=== PATIENT | female | born 1935 | race Caucasian/White ===

== ENCOUNTER 2023-10-25 14:24 | Emergency (ER) | payer OTHER, MEDICARE ==
[2023-10-25] MEDS ORDERED: SODIUM CHL 0.9% 1000 ML BAG IV ONE (14:25)
[2023-10-25] MEDS ORDERED: EPINEPHrine 1 MG/10 ML SYR IV ONE (14:25)
--- OUTSIDE RECORDS SUMMARY | 2023-10-25 14:27 | XMS REPORT | Continuity of Care Document ---
Author Name Unknown Address [address] [place] [address] [facility] thconnect Address [address] [place] [address] Care Team Providers Care Clothing Room Supervisor Name Role Phone MARCUS WILLS Attending Clinician Unavailable MAKEDA_EARLE_Liliana_Ellen Attending Clinician UnavailMARCUS Rodgers M.D. Attending Clinician UnavailPamela Baez Attending Clinician Unavailable Pcp-Lab Attending Clinician Unavailable Mina Hernandez DO Attending Clinician Doctor Unassigned, [place] Attending Clinician U navailable MAKEDA_EARLE_Starr_J Admitting Clinician Unavailab nolasco Payers Payer Name Policy Type Policy Number Effective Date Expirati on Date Source MEDICARE PART A AND B [id number] 1999 00:00:00 Problems Condition Name Condition Details Condition Category Status Onset Date Resolution Date Last Treatment Date Treating Clinician Comments Source Macular degenerati on Macular degenerati on Disease Active 10-19 00:00: 00 [facility] Aortic disorder Aortic disorder Disease Active 10-19 00:00: 00 Overview: Saw Dr. Bill in [place] early August. Diagnosed by echo. May have enlargeme nt and AI based upon her recollect ion. Didn't need f/u for a year. 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 02-19 00:00: 00 [facility] Asymptomat ic PVCs Asymptomat ic PVCs Disease Active 02-19 00:00: 00 [facility] Parotid swelling Parotid swelling Disease Active 2012-10 00:00: 00 [facility] Anemia Anemia Disease Active 06-18 00:00: 00 Overview: ICD10 Diagnosis Term Quality Improvement Consultant Utility [facility] Lumbago Lumbago Disease Active 11-09 00:00: 00 [facility] Hearing loss Hearing loss Disease Active 06-22 00:00: 00 [facility] 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 05-21 00:00: 00 [facility] Encounter for long-term (current) use of steroids Encounter for long-term (current) use of steroids Disease Active 05-21 00:00: 00 [facility] Personal history of other diseases of digestive system Personal history of other diseases of digestive system Disease Active 05-21 00:00: 00 [facility] Polymyalgi a rheumatica Polymyalgi a rheumatica Disease Active 05-21 00:00: 00 [facility] Elevated sedimentat ion rate Elevated sedimentat ion rate Disease Active 05-11 00:00: 00 [facility] Myalgia and myositis Myalgia and myositis Disease Active 05-11 00:00: 00 Overview: ICD10 Diagnosis Term Quality Improvement Consultant Utility [facility] Osteoporos is Osteoporos is Disease Active 05-11 00:00: 00 Overview: ICD10 Diagnosis Term Quality Improvement Consultant Utility [facility] History of anxiety disorder History of anxiety disorder Problem [facility]olve d [facility] History of arthritis History of arthritis Problem Resolve d [facility] History of hypertensi on History of hypertensi on Problem Resolve d [facility] History of fracture History of fracture Problem Resolve d [facility] History of hepatitis History of hepatitis Problem Resolve d [facility] History of high cholestero l History of high cholestero l Problem Resolve d [facility] History of pneumonia History of pneumonia Problem Resolve d [facility] History of psychiatri c treatment History of psychiatri c treatment Problem Resolve d [facility] Incomplete bladder emptying Incomplete bladder emptying Problem Active [facility] Recurrent UTI Recurrent UTI Problem Active [facility] 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 [facility] 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 Problem Active [facility] Urethral caruncle Urethral caruncle Problem Active [facility] Asymptomat ic bacteriuri a Asymptomat ic bacteriuri a Problem Active [facility] Vaginal atrophy Vaginal atrophy Problem Active [facility] Urinary incontinen ce in female Urinary incontinen ce in female Problem Active [facility] Allergies, Adverse Reactions, Alerts Allergy Name Allergy Type Status Severity Reaction(s) Onset Date Inactive Date Treating Clinician Comments Source Epinephr ine Propensi ty to adverse reaction s Active Unknown - See comments 01-18 00:00: 00 [facility] EPINEPHr ine Base AERS Allergy to drug (finding ) Active [facility] Family History Family Member Diagnosis Comments Start Date Stop Date Sourc e Sister Family history of diabetes mellitus [facility] Sister FHx: colon cancer [facility] Brother Family history of diabetes mellitus [facility] Unknown Family Member Family history of hypertension Multiple Family Members [facility] Grandfather FHx: colon cancer [facility] Social History Social Habit Start Date Stop Date Quantity Comments Source Alcohol intake [facility] Sex Assigned At [facility] Smoking Status Start Date Stop Date Source Never smoker [facility] Medications Ordered Medication Name Filled Medication Name Start Date Stop Date Current Medication? Ordering Clinician Indication Dosage Frequency Signature (SIG) Comments Components Source Estradiol 0.1 MG/GM Vaginal Cream Estradiol 0.1 MG/GM Vaginal Cream 12-30 00:00: 00 Yes MARCUS WILLS M.D. APPLY 1/2 GRAM TWICE WEEKLY [facility] ALPRAZolam (XANAX) 0.25 mg tablet 06-10 15:12: 39 Yes .25mg Take 0.25 mg by mouth 3 (three) times daily. Indication s: only for eye procedures [facility] ALPRAZolam (XANAX) 0.25 mg tablet 06-10 15:12: 39 Yes .25mg Take 0.25 mg by mouth 3 (three) times daily. Indication s: only for eye procedures [facility] ALPRAZolam (XANAX) 0.25 mg tablet 06-10 15:12: 39 Yes .25mg Take 0.25 mg by mouth 3 (three) times daily. Indication s: only for eye procedures [facility] ALPRAZolam (XANAX) 0.25 mg tablet 12-02 19:52: 11 Yes .25mg Take 0.25 mg by mouth 3 (three) times daily. Indication s: only for eye procedures [facility] CARTIA XT 180 mg 24 hr capsule 03-23 00:00: 00 Yes [facility] CARTIA XT 180 mg 24 hr capsule 03-23 00:00: 00 Yes [facility] CARTIA XT 180 mg 24 hr capsule 03-23 00:00: 00 Yes [facility] CARTIA XT 180 mg 24 hr capsule 03-23 00:00: 00 Yes [facility] predniSONE (ORASONE) 1 mg tablet 02-01 00:00: 00 Yes 3mg Take 3 tablets by mouth daily. [facility] predniSONE (ORASONE) 1 mg tablet 02-01 00:00: 00 Yes 3mg Take 3 tablets by mouth daily. [facility] predniSONE (ORASONE) 1 mg tablet 02-01 00:00: 00 Yes 3mg Take 3 tablets by mouth daily. [facility] predniSONE (ORASONE) 1 mg tablet 02-01 00:00: 00 Yes 3mg Take 3 tablets by mouth daily. [facility] ALPRAZolam 0.25 MG Oral Tablet ALPRAZolam 0.25 MG Oral Tablet Yes [facility] Cartia XT 120 MG/24HR CPCR Cartia XT 120 MG/24HR CPCR Yes [facility] Xarelto 2.5 MG Oral Tablet Xarelto 2.5 MG Oral Tablet Yes [facility] Vital Signs Vital Name Observation Time Observation Value Comments S kamryn Systolic blood pressure 2019-06-10 15:01:00 154 mm[Hg] [facility] Diastolic blood pressure 2019-06-10 15:01:00 84 mm[Hg] [facility] Heart rate 2019-06-10 15:01:00 82 /min [facility] Body temperature 2019-06-10 14:59:00 36.61 Ayse [facility] Respiratory rate 2019-06-10 14:59:00 16 /min [facility] Body height 2019-06-10 14:59:00 157.5 cm [facility] Body weight 2019-06-10 14:59:00 53.661 kg [facility] BMI 2019-06-10 14:59:00 21.64 kg/m2 [facility] Oxygen saturation in Arterial blood by Pulse oximetry 2019-06-10 14:59:00 95 /min In room air [facility] Systolic blood pressure 2019-06-10 15:01:00 154 mm[Hg] [facility] Diastolic blood pressure 2019-06-10 15:01:00 84 mm[Hg] [facility] Heart rate 2019-06-10 15:01:00 82 /min [facility] Body temperature 2019-06-10 14:59:00 36.61 Ayse [facility] Respiratory rate 2019-06-10 14:59:00 16 /min [facility] Body height 2019-06-10 14:59:00 157.5 cm [facility] Body weight 2019-06-10 14:59:00 53.661 kg [facility] BMI 2019-06-10 14:59:00 21.64 kg/m2 [facility] Oxygen saturation in Arterial blood by Pulse oximetry 2019-06-10 14:59:00 95 /min In room air [facility] Body temperature 2020-12-20 10:35:00 97.6 [degF] [facility] Systolic blood pressure 2020-12-20 10:35:00 132 mm[Hg] Location: LUE; Position: Sitting [facility] Diastolic blood pressure 2020-12-20 10:35:00 80 mm[Hg] Location: LUE; Position: Sitting [facility] Body height 2020-12-20 10:35:00 62 [in_us] [facility] Weight 2020-12-20 10:35:00 112 [lb_av] [facility] Body mass index (BMI) [Ratio] 2020-12-20 10:35:00 20.49 kg/m2 [facility] Systolic blood pressure 2020-06-15 11:14:00 120 mm[Hg] Location: LUE; Position: Sitting [facility] Diastolic blood pressure 2020-06-15 11:14:00 80 mm[Hg] Location: LUE; Position: Sitting [facility] Body height 2020-06-15 11:14:00 62 [in_us] [facility] Weight 2020-06-15 11:14:00 112 [lb_av] [facility] Body mass index (BMI) [Ratio] 2020-06-15 11:14:00 20.49 kg/m2 [facility] Body temperature 2020-06-15 11:14:00 97.9 [degF] [facility] Systolic blood pressure 2020-03-17 10:54:00 158 mm[Hg] Location: LUE; Position: Sitting [facility] Diastolic blood pressure 2020-03-17 10:54:00 80 mm[Hg] Location: LUE; Position: Sitting [facility] Body height 2020-03-17 10:54:00 62 [in_us] [facility] Weight 2020-03-17 10:54:00 112 [lb_av] [facility] Body mass index (BMI) [Ratio] 2020-03-17 10:54:00 20.49 kg/m2 [facility] Body temperature 2020-03-17 10:54:00 97.9 [degF] [facility] Systolic blood pressure 2019-12-15 10:42:00 160 mm[Hg] Location: LUE; Position: Sitting [facility] Diastolic blood pressure 2019-12-15 10:42:00 80 mm[Hg] Location: LUE; Position: Sitting [facility] Body height 2019-12-15 10:42:00 62 [in_us] [facility] Weight 2019-12-15 10:42:00 112.375 [lb_av] [facility] Body mass index (BMI) [Ratio] 2019-12-15 10:42:00 20.55 kg/m2 [facility] Body temperature 2019-12-15 10:42:00 97.9 [degF] [facility] BP Systolic 2019-10-20 11:00:00 144 mm[Hg] Location: LUE; Position: Sitting [facility] BP Diastolic 2019-10-20 11:00:00 80 mm[Hg] Location: LUE; Position: Sitting [facility] Height 2019-10-20 11:00:00 62 [in_us] [facility] Weight 2019-10-20 11:00:00 110.5 [lb_av] [facility] Body Mass Index Calculated 2019-10-20 11:00:00 20.21 kg/m2 [facility] Temperature 2019-10-20 11:00:00 97.9 [degF] [facility] BP Systolic 2019-09-22 11:33:00 148 mm[Hg] Location: LUE; Position: Sitting [facility] BP Diastolic 2019-09-22 11:33:00 80 mm[Hg] Location: LUE; Position: Sitting [facility] Height 2019-09-22 11:33:00 62 [in_us] [facility] Weight 2019-09-22 11:33:00 114.25 [lb_av] [facility] Body Mass Index Calculated 2019-09-22 11:33:00 20.9 kg/m2 [facility] Temperature 2019-09-22 11:33:00 97.5 [degF] [facility] Procedures Procedure Date / Time Performed Performing Clinician Source [facility]] CULTURE, URINE, ROUTINE 2019-09-22 00:00:00 [facility] CONSENT/REFUSAL FOR DIAGNOSIS AND TREATMENT 2019-06-10 14:47:34 Doctor Unassigned, [place] [facility] History of Cataract surgery [facility] History of Oral surgery [facility] History of Tonsillectomy [facility] History of Oral Surgery Tooth Extraction [place] [facility] Encounters Start Date/Time End Date/Time Encounter Type Admission Type Attending Clinicians Care Facility Care Department Encounter ID Source 2021-02-18 04:24:11 Outpatient MARCUS WILLS [facility] [id number] [facility] 2022-08-10 00:00:00 2022-08-10 00:00:00 Outpatient GC_SWOBGYN_ Starr_J [facility] [id number] [facility] 2020-12-20 11:00:00 2020-12-20 11:00:00 Sada vincent; MARCUS WILLS M.D. SASS, BRANDON, M.D. [facility] [id number] [facility] 2020-06-15 11:00:00 2020-06-15 11:00:00 MARCUS Tucker M.D. SASS, BRANDON, M.D. [facility] [id number] [facility] 2020-03-17 11:00:00 2020-03-17 11:00:00 Appointmen t; MARCUS WILLS M.D. SASS, BRANDON, M.D. [facility] [id number] [facility] 2019-12-15 11:00:00 2019-12-15 11:00:00 Appointmen t; MARCUS WILLS M.D. SASS, BRANDON, M.D. [facility] [id number] [facility] 2019-10-20 11:00:00 2019-10-20 11:00:00 Appointmen t; MARCUS WILLS M.D. SASS, BRANDON, M.D. [facility] [id number] [facility] 2019-09-22 11:20:00 2019-09-22 11:20:00 Appointmen t; MARCUS WILLS M.D. SASS, BRANDON, M.D. [facility] [id number] [facility] 2019-09-14 15:13:00 2019-09-14 15:13:00 Outpatient Pamela Ford [id number] [facility] 2019-06-10 10:21:06 2019-06-10 10:31:06 [employer] Installation Helper Visit Pcp-Lab Mina Hernandez [facility] [id number] [facility] 2019-06-10 09:50:33 2019-06-10 10:10:33 Office Visit Mina Hernandez [facility] [id number] [facility] 2019-06-10 09:50:33 2019-06-10 10:10:33 Office Visit Mina Hernandez [facility] [id number] 2019-06-10 00:00:00 2019-06-10 00:00:00 Orders Only Doctor Unassigned, [place] [facility] [id number] [facility] Results Test Description Test Time Test Comments Results Result Co mments Source [facility][O] Urine Dipstick (In Office)2019-10-20 11:18:00* Test Item Value Reference Range Interpretation Comme nts Glucose (test code = Glucose) neg N LEUKOCYTES (test code = LEUKOCYTES) neg N NITRITE; Normal (test code = 24019-7) neg N UROBILINOGEN; Normal (test c ode = 71782-9) 0.2 N PROTEIN; Normal (test code = 75383-9) neg N pH (test code = pH) 6.0 N URINE BLOOD; Normal (test co de = 88054-7) neg N SPECIFIC GRAVITY; Normal (te st code = 2965-2) 1.015 N KETONES; Normal (test code = 34120-6) neg N BILIRUBIN; Normal (test code = 20665-2) neg N [facility]] CULTURE, URINE, [id number] 12:10:01* Test Item Value Reference Range Interpretation Comme [facility] FINAL REPORT (test code = FI NAL REPORT) No Growth [facility][O] Urine Dipstick (In Office)2019-09-22 12:09:00* Test Item Value Reference Range Interpretation Comme nts Glucose (test code = Glucose) neg N LEUKOCYTES (test code = LEUKOCYTES) neg N NITRITE; Normal (test code = 74005-6) neg N UROBILINOGEN; Normal (test c ode = 22844-6) 0.2 N PROTEIN; Normal (test code = 88840-3) neg N pH (test code = pH) 6.5 N URINE BLOOD; Normal (test co de = 17916-9) neg N SPECIFIC GRAVITY; Normal (te st code = 2965-2) 1.010 N KETONES; Normal (test code = 64219-3) neg N BILIRUBIN; Normal (test code = 43239-8) neg N [facility]
--- NOTE | 2023-10-25 14:57 | ER ---
Nurse's Notes [facility] Name: Adrianne Newberry Age: 88 yrs Sex: Female : 1935 Arrival Date: 10/25/2023 Time: 14:24 Bed 14 Private MD: Diagnosis: Cardiac arrest, cause unspecified Presentation: 10/25 14:34 Chief complaint: EMS states: toned out for dizziness. Afib with RVR w/hr of 125. 18 me1 gauge LAC. Administered 600 ml NS and heartrate dropped to about 100. Patients only complaint is the dizziness. Coronavirus screen: Vaccine status: Patient reports being unvaccinated. Ebola Screen: No symptoms or risks identified at this time. Initial Sepsis Screen: Does the patient meet any 2 criteria? HR > 90 bpm. Does the patient have a suspected source of infection? No. Patient's initial sepsis screen is negative. Risk Assessment: Do you want to hurt yourself or someone else? Patient reports no desire to harm self or others. Onset of symptoms was October 25, 2022. 14:34 Method Of Arrival: EMS: [facility] fl1 14:34 Acuity: MARY 3 me1 14:52 Acuity: MARY 1 mb9 Historical: - Home Meds: 14:37 Cardizem Oral [Active]; xarelto [Active]; xanax [Active]; me1 - Immunization history:: Adult Immunizations unknown. - Social history:: Smoking status: Patient denies any tobacco usage or history of. Screenin:35 [facility] ED Fall Risk Assessment (Adult) History of falling in the last 3 months, mb9 including since admission No falls in past 3 months (0 pts) Confusion or Disorientation No (0 pts) Intoxicated or Sedated No (0 pts) Impaired Gait No (0 pts) Mobility Assist Device Used No (0 pt) Altered Elimination No (0 pt) Score/Fall Risk Level 0 - 2 = Low Risk Oriented to surroundings, Maintained a safe environment, Educated pt \\T\\ family on fall prevention, incl call for assistance when getting out of bed. Abuse screen: Denies threats or abuse. Nutritional screening: No deficits noted. Tuberculosis screening: No symptoms or risk factors identified. Assessment: 14:40 Reassessment: pt sitting up in bed speaking to this nurse. Pt states, "oh no, I feel mb9 like I'm going to pass out." Pt becomes unresponsive and no central pulse palpated. Unknown code status at this time. CPR started. 14:42 Reassessment: No central pulse palpated. Rhythm is PEA. CPR resumed. mb9 14:44 Reassessment: Reassessment: No central pulse palpated. Rhythm is PEA. CPR resumed. mb9 14:46 Reassessment: No central pulse palpated. Rhythm is PEA. Dr. Daley on telephone speaking mb9 to Henri MORIN [phone], about pt being DNR. Time of called by Dr. Castellon. 15:19 Reassessment: Rn Surgical Maurice at bedside. mb9 15:20 Reassessment: Spoke to Sabine from [employer]. Pt is not a candidate for eyes, tissue, mb9 or organs to due age/wt. Reference number [id number]. 16:02 Reassessment: Family at bedside. mb9 Vital Signs: 14:34 BP 154 / 128; Pulse 92; Resp 18; Temp 98.4(O); Pulse Ox 94% on R/A; Weight 43.54 kg; me1 Height 5 ft. 2 in. ; 14:37 BP 131 / 55; Pulse 127; Resp 18; Pulse Ox 100% on R/A; mb9 14:34 Body Mass Index 17.56 (43.54 kg, 157.48 cm) fl1 ED Course: 14:26 Patient arrived in ED. eb 14:29 Roland Castellon MD is Attending Physician. ec2 14:35 Placed in gown. Bed in low position. Call light in reach. Side rails up X 1. Client mb9 placed on continuous cardiac and pulse oximetry monitoring. NIBP monitoring applied. monitor tech on. 14:37 Triage completed. me1 14:43 Inserted saline lock: 18 gauge in right antecubital area, using aseptic technique. zm 14:52 Mavis Coe RN is Primary Nurse. mb9 14:53 Arm band placed on. mb9 14:53 [facility] PD called/ they will page out the administrative law judge. eb 14:55 Roland Castellon MD is Pronouncing Provider. ec2 Administered Medications: 14:42 Drug: EPINEPHrine 0.1mg/mL 1:10,000 1 mg IVP once Route: IVP; Site: left antecubital; mb9 15:25 Follow up: Response: No adverse reaction mb9 14:42 Drug: EPINEPHrine 0.1mg/mL 1:10,000 1 mg IVP once Route: IVP; Site: right antecubital; mb9 15:25 Follow up: Response: No adverse reaction mb9 Outcome: 16:54 Patient : Time of 14:46 Pronounced by Roland Castellon MD Body to mb9 home, 16:54 Condition: 16:54 Patient left the ED. mb9 Signatures: Yamileth Ziegler, [place] Coe, Mavis Marshall RN RN mb9 Milena Morataya RN RN fl1 Cande, MD ROCKY Watkins ec2 Corrections: (The following items were deleted from the chart) 14:49 14:37 General: fl1 [facility] 14:52 14:50 Inserted saline lock: 18 gauge in right antecubital area, using aseptic zm technique. zm 14:53 14:40 Inserted saline lock: 18 gauge in right antecubital area, using aseptic zm technique. zm 15:06 14:46 Reassessment: No central pulse palpated. Rhythm is PEA. Dr. Daley on telephone mb9 speaking to [facility] about pt being DNR. Time of called by Dr. Castellon. mb9 15:27 15:20 Reassessment: Spoke to Sabine from [facility]. Pt is not a candidate for eyes, mb9 tissue, or organs to due age/wt. mb9
--- NOTE | 2023-10-25 14:57 | EDPHYS ---
Physician Documentation [facility] Name: Adrianne Newberry Age: 88 yrs Sex: Female : 1935 Arrival Date: 10/25/2023 Time: 14:24 Bed 14 Private MD: ED Physician Roland Castellon HPI: 10/25 14:38 This 88 yrs old Female presents to ER via EMS with complaints of dizziness, ec2 afib. 14:38 Patient arrives today for evaluation of dizziness and elevated heart rate. Patient ec2 reports that she felt a swollen sensation, EMS reports that they picked her up and noted her to be in A-fib with a heart rate in the 130s. No chest pain, no difficulty breathing. Patient with history of A-fib. Historical: - Home Meds: 14:37 Cardizem Oral [Active]; xarelto [Active]; xanax [Active]; me1 - Immunization history:: Adult Immunizations unknown. - Social history:: Smoking status: Patient denies any tobacco usage or history of. ROS: 14:52 Constitutional: as per hpi ec2 Exam: 14:52 Constitutional: GEN: NAD Head: atraumatic Eyes: EOMI Ears: External ears are ec2 normal. CV: regular rate LUNGS: no respiratory distress ABD: non-distended SKIN: no evidence of rashes MSK: no evidence of trauma NEURO: moves all extremities equally Vital Signs: 14:34 BP 154 / 128; Pulse 92; Resp 18; Temp 98.4(O); Pulse Ox 94% on R/A; Weight 43.54 kg; me1 Height 5 ft. 2 in. ; 14:37 BP 131 / 55; Pulse 127; Resp 18; Pulse Ox 100% on R/A; mb9 14:34 Body Mass Index 17.56 (43.54 kg, 157.48 cm) me1 Procedures: 14:57 CPR: See CPR flow sheet. Initial patient assessment: unresponsive, pulses present w/ ec2 compressions, The presenting cardiac rhythm is PEA. respirations assisted with BVM, Meds given: Epinephrine X 2, despite ED evaluation and treatment, the patient . CPR was stopped at 14:46. MDM: 14:29 Patient medically screened. ec2 14:30 Data reviewed: vital signs. ec2 14:30 ED course: Patient arrives today due to concern for dizziness. Examination remarkable ec2 for well-appearing nontoxic but was otherwise in no acute distress. Will obtain lab work, EKG and further assess the patient complaint. Currently considering arrhythmia, A-fib, vertigo.. 14:54 ED course: I was called back to the room as the patient was complaining of passing out, ec2 patient had a witnessed cardiac arrest by nursing. At that point we initiated ACLS with 2 rounds of epinephrine, was able to talk to family members who stated that she would be a DNR and would not like any life-sustaining measures. At that time we decided to cease our efforts and I called time of at 1446. Family updated at the bedside.. 14:56 ED course: I personally performed a cardiac ultrasound which showed cardiac standstill, ec2 no spontaneous respirations noted, no withdrawal to pain, pupils were fixed and dilated bilaterally.. 10/25 15:30 Order name: glucometer results - FOR PT WITH NO ID; Complete Time: 16:10 iw 10/25 14:38 Order name: EKG; Complete Time: 14:38 ec2 10/25 14:38 Order name: IV Saline Lock; Complete Time: 15:25 ec2 Administered Medications: 14:42 Drug: EPINEPHrine 0.1mg/mL 1:10,000 1 mg IVP once Route: IVP; Site: left antecubital; mb9 15:25 Follow up: Response: No adverse reaction mb9 14:42 Drug: EPINEPHrine 0.1mg/mL 1:10,000 1 mg IVP once Route: IVP; Site: right antecubital; mb9 15:25 Follow up: Response: No adverse reaction mb9 Disposition: 14:55 . ec2 Disposition Summary: 10/25/23 14:56 Patient Notes: Pronouncing Physician: Roland Castellon ec2 Time of : 14:46 10/25/2023 ec2 Diagnosis - Cardiac arrest, cause unspecified ec2 Signatures: Dispatcher [employer] Mavis Watkins RN RN mb9 Milena Morataya RN RN me1 Roland Castellon MD MD ec2 Corrections: (The following items were deleted from the chart) 14:54 14:52 Data reviewed: vital signs, ec2 ec2 14:54 14:52 ED course: Patient arrives today due to concern for dizziness. Examination ec2 remarkable for well-appearing nontoxic but was otherwise in no acute distress. Will obtain lab work, EKG and further assess the patient complaint. Currently considering arrhythmia, A-fib, vertigo.. ec2 14:54 14:52 ED course: Patient arrives today due to concern for dizziness. Examination ec2 remarkable for well-appearing nontoxic but was otherwise in no acute distress. Will obtain lab work, EKG and further assess the patient complaint. Currently considering arrhythmia, A-fib, vertigo.. ec2 14:54 14:52 ED course: Patient arrives today due to concern for dizziness. Examination ec2 remarkable for well-appearing nontoxic but was otherwise in no acute distress. Will obtain lab work, EKG and further assess the patient complaint. Currently considering arrhythmia, A-fib, vertigo.. ec2 14:56 14:38 Chest Single View+[email or web address] ordered. EDMS EDMS 15:25 14:38 Cardiac monitoring ordered. ec2 mb9 15:25 14:38 EKG - Nurse/Tech ordered. ec2 mb9 15:25 14:38 Labs collected and sent ordered. ec2 mb9 16:03 14:38 Oxygen Per Protocol ordered. ec2 mb9 16:03 14:38 O2 Sat Monitoring ordered. ec2 mb9
[2023-10-25 18:35] VITALS: TEMP 98.4
[2023-10-25 18:46] VITALS: BP 131/55; O2SAT 100
== END 2023-10-25 16:54 | disposition expired ==
LOC: ER 14:24
DX: I46.9 Cardiac arrest, cause unspecified (principal); Z79.01 Long term (current) use of anticoagulants
CPT/HCPCS: 36415; 82947; 92950 ×3; 99285; J0171; J7030